=== PATIENT | male | born 1990 | race Caucasian/White ===

== ENCOUNTER → 2016-12-06 | Outpatient (CLI) | payer OTHER ==
--- NOTE | 2016-12-06 17:16 | REP ---
MAXILLOFACIAL CT WITHOUT CONTRAST: HISTORY: Chronic pansinusitis. The patient is status post bilateral medial antrostomy, right uncinectomy, partial left uncinectomy, partial bilateral ethmoidectomy and partial right middle nasal turbinectomy. Mucosal thickening is present in the sinuses. There is complete opacification of the frontal, sphenoid and left ethmoid sinuses. There is almost complete opacification of the maxillary and right ethmoid sinuses. The inferior and left middle nasal turbinates are partially paradoxical. There is minimal deviation of the nasal septum to the left. A spur is present arising from the left side of the nasal septum. There is dehiscence of the medial wall of the right orbit. The medial wall of the left orbit, cribriform plate and optic canals are intact. The carotid canals form a segment of the posterolateral hubbard of the sphenoid sinus. The sphenoid sinus septum inserts into the right internal carotid canal wall. Soft tissue densities are present in the nasal passage consistent with polyps. IMPRESSION: 1. Postoperative change as described above. 2. Sinus mucosal thickening as described above. 3. There are soft tissue densities in the nasal passage consistent with polyps. Signed by Hill Hernandez MD 12/07/2016 09:40 A
== END ==
LOC: M RAD 16:07
PROVIDERS: ATTEND Otolaryngology
DX: J32.4 Chronic pansinusitis (principal); J33.9 Nasal polyp, unspecified; J34.89 Other specified disorders of nose and nasal sinuses

== ENCOUNTER → 2017-01-11 | Day surgery (SDC) | payer OTHER ==
[~2017-01-11] VITALS: Ht 177.8 cm; Wt 74.8 kg
[~2017-01-11] MED LIST: ACETAMINOPH W/CODEINE #3 TAB UD PO PRN; EPINEPHrine 1MG/ML INJ 30ML MD-VIAL As Ordered ONE; EPINEPHrine INJ 1 MG/ML 1ML AMP As Ordered ONE; FLON27.5; HYDROmorphone HCL 1 MG/ML SYRINGE (J1170) IV PRN; HYDROmorphone HCL 2 MG/ML 1ML VIAL (J1170) As Ordered ONE; LIDOCAINE 2% INJ 100 MG/5 ML SDV (FOR ANES.) As Ordered ONE; LIDOCAINE 2% JELLY 30 ML As Ordered ONE; LIDOCAINE W/EPINEPHRINE 1% 20ML VIAL As Ordered ONE; LR 1,000 ML IV ONE; LR 1,000 ML IV SCH; METHYLENE BLUE 0.5% (5MG/ML) 10 ML AMP (PROVAYBLUE)(Q9968 PER 1MG) As Ordered ONE; METOCLOPRAMIDE INJ 10MG/2ML VIAL (J2765) IV PRN; MIDAZOLAM INJ 2 MG/2 ML VIAL (J2250) As Ordered ONE; MORPHINE 10 MG/ML 1ML VIAL IV PRN; NO MEDICATIONS; ONDANSETRON 4MG/2ML VIAL (J2405) As Ordered ONE; ONDANSETRON 4MG/2ML VIAL (J2405) IV PRN; PERCOCET 5MG/325MG TAB PO PRN; PROPOFOL 200 MG/20 ML VIAL As Ordered ONE; ROCURONIUM BROMIDE 50 MG/5 ML VIAL/SYRINGE As Ordered ONE; dexameTHASONE 4 MG/ML 1ML VIAL (J1100) As Ordered ONE; fentaNYL 100 MCG/2 ML INJECTION (J3010) As Ordered ONE; fentaNYL 100 MCG/2 ML INJECTION (J3010) IV PRN
[2017-01-11 14:15] VITALS: BP 136/89
--- NOTE | 2017-01-11 22:25 | RO ---
DATE OF PROCEDURE: 01/11/2017 PREPROCEDURE DIAGNOSIS: Chronic rhinosinusitis with polyposis. POSTPROCEDURE DIAGNOSIS: Chronic rhinosinusitis with polyposis plus nasal septal deviation. PROCEDURE: Septoplasty, bilateral polypectomies, ethmoidectomies, nasal frontal sinusotomy with balloon dilation, ethmoidectomies, antrostomies and sphenoidotomy with bilateral frontal sinus lavage. SURGEON: Dr. Heidi Santoro SHOWER ENCLOSURE INSTALLER: ANESTHESIA: FINDINGS: There was bilateral nasal polyp disease. The navigational system was used during the procedure. DESCRIPTION OF PROCEDURE: Under general anesthesia with the patient intubated, the patient was draped in the usual manner. I used pledgets of adrenaline 1:1000 and infiltrated with lidocaine with epinephrine. I started first by making an incision anteriorly in the septum, elevated the subperichondrial periosteal plane. I removed portions of the ethmoid plate and vomer, which were deviated, as well as portion of the maxillary crest. Once this was done, the septum was straight and so I could approach the sinus as well. That incision was closed with a #4-0 Vicryl, #4-0 chromic. I started first on the right side and then I alternated back on both sides. Additionally, I removed the polypoid tissue as much as possible. The middle turbinate on the left side was affixed to the lateral nasal wall so I tried elevating it, but it fractured and I ended up removing much of it. I opened up the anterior and posterior ethmoid air cells. I did the same on the opposite side, except that I preserved the middle turbinate. Next, I opened into the sphenoid. There was mucopus in both sides, which was suctioned as well. Once that was done, then I identified the maxillary sinus and then removed the medial wall of the maxillary sinus, middle meatus on both sides. There was some polypoid tissue within the maxillary sinus, which were removed with a microdebrider. Next, I opened up the nasofrontal area, identified the nasofrontal opening. I then passed the guidewire up into the sinus and then passed the balloon over that. The balloon was inflated. Then, I irrigated the frontal sinus and removed the purulent fluid. The same procedure was performed on both sides. The patient tolerated the procedure well. There was probably 50 mL estimated blood loss at maximum. I did put a Propel implant between the middle turbinate and lateral nasal wall on the left side. The patient was then extubated and transferred to the recovery room in excellent condition.
== END | disposition home or self-care (01) ==
LOC: M SDC 05:58
PROVIDERS: ATTEND Otolaryngology
DX: J34.2 Deviated nasal septum (principal); J32.4 Chronic pansinusitis; J33.9 Nasal polyp, unspecified
CPT/HCPCS: 30520; 31237; 31255; 31256; 31287; 88300; J1100; J1170; J2250; J2405; J3010; Q9968

== ENCOUNTER → 2017-11-08 | Outpatient (CLI) | payer OTHER | LOC: M CARPUL 15:46 | DX: R06.02 Shortness of breath (principal) | CPT/HCPCS: 94060 ==

== ENCOUNTER → 2017-11-17 | Outpatient (CLI) | payer OTHER ==
[~2017-11-17] MED LIST changes: -ACETAMINOPH W/CODEINE #3 TAB UD PO PRN; -EPINEPHrine 1MG/ML INJ 30ML MD-VIAL As Ordered ONE; -EPINEPHrine INJ 1 MG/ML 1ML AMP As Ordered ONE; -FLON27.5; -HYDROmorphone HCL 1 MG/ML SYRINGE (J1170) IV PRN; -HYDROmorphone HCL 2 MG/ML 1ML VIAL (J1170) As Ordered ONE; -LIDOCAINE 2% INJ 100 MG/5 ML SDV (FOR ANES.) As Ordered ONE; -LIDOCAINE 2% JELLY 30 ML As Ordered ONE; -LIDOCAINE W/EPINEPHRINE 1% 20ML VIAL As Ordered ONE; -LR 1,000 ML IV ONE; -LR 1,000 ML IV SCH; +METHACHOLINE KIT (J7674) INH; -METHYLENE BLUE 0.5% (5MG/ML) 10 ML AMP (PROVAYBLUE)(Q9968 PER 1MG) As Ordered ONE; -METOCLOPRAMIDE INJ 10MG/2ML VIAL (J2765) IV PRN; -MIDAZOLAM INJ 2 MG/2 ML VIAL (J2250) As Ordered ONE; -MORPHINE 10 MG/ML 1ML VIAL IV PRN; -NO MEDICATIONS; -ONDANSETRON 4MG/2ML VIAL (J2405) As Ordered ONE; -ONDANSETRON 4MG/2ML VIAL (J2405) IV PRN; -PERCOCET 5MG/325MG TAB PO PRN; -PROPOFOL 200 MG/20 ML VIAL As Ordered ONE; -ROCURONIUM BROMIDE 50 MG/5 ML VIAL/SYRINGE As Ordered ONE; -dexameTHASONE 4 MG/ML 1ML VIAL (J1100) As Ordered ONE; -fentaNYL 100 MCG/2 ML INJECTION (J3010) As Ordered ONE; -fentaNYL 100 MCG/2 ML INJECTION (J3010) IV PRN
== END ==
LOC: M CARPUL 08:47
DX: R06.02 Shortness of breath (principal)
CPT/HCPCS: J7674